=== PATIENT | male | born 1995 | race African-American/Black ===

== ENCOUNTER 2023-07-27 10:20 | Emergency (ER) | payer OTHER, SELFPAY ==
[2023-07-27] MEDS ORDERED: Prochlorperazine 10 MG/2 ML VIAL ONE (11:31)
[2023-07-27] MEDS ORDERED: diphenhydrAMINE 50 MG/ML VIAL ONE (11:31)
[2023-07-27] MEDS ORDERED: Ketorolac Tromethamine 30 MG/ML VIAL ONE (11:31)
[2023-07-27] MEDS ORDERED: Sodium Chloride 0.9% 250 ML 250 ML ONE (11:31)
[2023-07-27 12:22] LABS: Anion Gap 13 mmol/L (10-20); BUN (Urea Nitrogen) 8 mg/dL (8.9-20.6); Calc. Creatinine Clearance 0 mL/min (70-130); Calcium 9.5 mg/dL (7.8-10.44); Carbon Dioxide 27 mmol/L (22-29); Chloride 103 mmol/L (98-107); Estimated GFR 104; Glucose 87 mg/dL (70-105); Potassium 4.2 mmol/L (3.5-5.1); Sodium 139 mmol/L (136-145)
== END 2023-07-27 12:54 | disposition home or self-care (01) ==
LOC: NAV ERS 10:20
DX: G44.009 Cluster headache syndrome, unspecified, not intractable (principal); I10 Essential (primary) hypertension
CPT/HCPCS: 36415; 80048; 96365; 96375; J0780; J1200; J1885; J7050

== ENCOUNTER 2023-08-04 08:13 | Emergency (ER) | payer OTHER ==
[2023-08-04] MEDS ORDERED: diphenhydrAMINE 50 MG/ML VIAL ONE (08:39)
[2023-08-04] MEDS ORDERED: Ketorolac Tromethamine 30 MG/ML VIAL ONE (08:39)
[2023-08-04] MEDS ORDERED: Prochlorperazine 10 MG/2 ML VIAL ONE (08:39)
[2023-08-04] MEDS ORDERED: Sodium Chloride 0.9% 1,000 ML ONE (08:39)
== END 2023-08-04 09:59 | disposition home or self-care (01) ==
LOC: NAV ERS 08:13
DX: I10 Essential (primary) hypertension (principal); R51.9 Headache, unspecified
CPT/HCPCS: 94760; 96365; 96375; J0780; J1200; J1885; J7050

== ENCOUNTER 2025-02-04 16:50 | Emergency (ER) | payer OTHER ==
[2025-02-04] MEDS ORDERED: Sodium Chloride 0.9% 1,000 ML ONE (17:16)
[2025-02-04 17:36] LABS: #Basophils 0.1 thou/uL (0.0-0.2); #Eosinophils 0.1 thou/uL (0.0-0.7); #Lymphocytes 2.7 thou/uL (1.20-3.40); #Monocytes 0.6 thou/uL (0.11-0.59); #Neutrophils 3.3 thou/uL (1.40-6.50); %Basophils 0.8 % (0.0-1.0); %Eosinophils 1.4 % (0.0-10.0); %Lymphocytes 40.4 % (21.0-51.0); %Monocytes 8.7 % (0.0-10.0); %Neutrophils 48.8 % (42.0-75.0); Hematocrit 46.4 % (42.0-52.0); Hemoglobin 13.7 g/dL (14.0-18.0); Mean Corpuscular HGB CONC 29.6 g/dL (32.0-36.0); Mean Corpuscular Hemoglobin 22.8 pg (27.0-31.0); Mean Corpuscular Volume 76.8 fl (78.0-98.0); Mean Platelet Volume 9.1 fL (7.4-10.4); Platelet Count 209 10x3/uL (130-400); RBC Distribution Width 12.3 % (11.5-14.5); Red Blood Cell (RBC) Count 6.04 mill/uL (4.70-6.10); White Blood Cell (WBC) Count 6.7 10x3/uL (4.8-10.8)
[2025-02-04 17:43] LABS: ALT (SGPT) 16 U/L (Less than 45); AST (SGOT) 25 U/L (11-34); Albumin 4.9 g/dL (3.1-4.5); Alkaline Phosphatase 55 U/L (40-110); Anion Gap 14 mmol/L (10-20); BUN (Urea Nitrogen) 13 mg/dL (8.9-20.6); Bilirubin, Total 0.5 mg/dL (0.3-1.2); Calc. Creatinine Clearance 0 mL/min (70-130); Calcium 9.7 mg/dL (7.8-10.44); Carbon Dioxide 24 mmol/L (22-29); Chloride 106 mmol/L (98-107); Estimated GFR 75; Globulin 3.4 g/dL (2.4-3.5); Glucose 83 mg/dL (70-105); Magnesium 2.1 mg/dL (1.6-2.6); Potassium 3.4 mmol/L (3.5-5.1); Protein, Total 8.3 g/dL (6.0-8.3); Sodium 141 mmol/L (136-145)
[2025-02-04 17:44] LABS: Troponin I Less than 0.010 ng/mL (< 0.028)
[2025-02-04 17:58] LABS: Anisocytosis SLIGHT = 6-15 cells (100X) (0-5/hpf); Hypochromia SLIGHT = 6-15 cells (100X) (0-5/hpf); Microcytosis SLIGHT = 6-15 cells (100X) (0-5/hpf); Poikilocytosis SLIGHT = 6-15 cells (100X) (0-5/hpf)
[2025-02-04 17:59] LABS: Platelet Adequacy Comment Appears Adequate
== END 2025-02-04 18:14 | disposition home or self-care (01) ==
LOC: NAV ERS 16:50
DX: R00.2 Palpitations (principal); I10 Essential (primary) hypertension
CPT/HCPCS: 71046; 80053; 83735; 83880; 84484; 85025; 85379; 93005; 94760; J7030